=== PATIENT | male | born 1985 | race American Indian/Alaskan Native ===

== ENCOUNTER 2017-09-26 10:40 | Emergency (ER) | payer OTHER ==
[2017-09-26 10:50] VITALS: BP 135/81; PULSE 60; RESP 18; TEMP 98.7; O2SAT 100
--- NOTE | 2017-09-26 11:05 | C.PDOC ---
History Of Present Illness 32 year old male presents to the ED requesting a second opinion for a possible peritonsillar abscess. Patient reports having pain, swelling to the left tonsilar area for the past 2 weeks. Patient reports he was evaluated at [facility]. Patient reports last evaluation was done yesterday for the same symptoms, patient states " they did not tell me what to do, I don't know what is next". Patient denies dental pain, fever, chills, nausea, vomit, diarrhea. Time Seen by Provider: 09/26/17 11:03 Chief Complaint (Nursing): Dental Pain History Per: Patient History/Exam Limitations: no limitations Onset/Duration Of Symptoms: Days Current Symptoms Are (Timing): Still Present Quality: Positive for: "Pain" Recent travel outside of the [place]: No Additional History Per: Patient Past Medical History Reviewed: Historical Data, Nursing Documentation, Vital Signs Vital Signs: Last Vital Signs Temp 98.7 F 09/26/17 10:49 Pulse 60 09/26/17 10:49 Resp 18 09/26/17 10:49 BP 135/81 09/26/17 10:49 Pulse Ox 100 09/26/17 11:05 - Medical History PMH: No Chronic Diseases Surgical History: No Surg Hx Family History: States: Unknown Family Hx - Social History Hx Alcohol Use: No Hx Substance Use: No - Immunization History Hx Tetanus Toxoid Vaccination: No Hx Influenza Vaccination: No Hx Pneumococcal Vaccination: No Review Of Systems Constitutional: Negative for: Fever, Chills ENT: Positive for: Throat Swelling. Negative for: Nose Discharge, Nose Congestion, Throat Pain Respiratory: Negative for: Cough, Shortness of Breath Skin: Negative for: Rash Physical Exam - Physical Exam Appears: Non-toxic, No Acute Distress Skin: Normal Color, Warm, Dry Head: Atraumatic, Normacephalic Eye(s): bilateral: Normal Inspection Nose: No Discharge Oral Mucosa: Moist Throat: No Erythema, No Exudate, No Drooling, Other (left tonsill swelling. no discharge noted) Neck: Normal ROM, Supple Chest: Symmetrical Cardiovascular: Rhythm Regular, No Murmur Respiratory: Normal Breath Sounds, No Rales, No Rhonchi, No Wheezing, Other ( NARD) Extremity: Normal ROM, No Tenderness, No Swelling Neurological/Psych: Oriented x3, Normal Speech, Normal Motor, Normal Sensation Gait: Steady ED Course And Treatment O2 Sat by Pulse Oximetry: 100 (ON RA) Pulse Ox Interpretation: Normal Medical Decision Making Medical Decision Making: D/C paperwork was reviewed and patient had a CT neck done, patient was D/C with prescription for steroid and Augmentin. Patient states " no one explained this to me, I did not realize all this was given". Patient was advised to f/u with ENT as scheduled in 2 days patient agrees with plan and treatment. Disposition - Disposition Referrals: [facility] [Other] [facility] [Outside] [facility] [Outside] Disposition: HOME/ ROUTINE Disposition Time: 11:04 Condition: GOOD Forms: [facility] (B[place]i) - Clinical Impression Clinical Impression: Peritonsillar abscess - Scribe Statement The provider has reviewed the documentation as recorded by the Scribe Eleazar Calzada All medical record entries made by the Scribe were at my direction and personally dictated by me. I have reviewed the chart and agree that the record accurately reflects my personal performance of the history, physical exam, medical decision making, and the department course for this patient. I have also personally directed, reviewed, and agree with the discharge instructions and disposition.
== END 2017-09-26 11:26 | disposition home or self-care (01) ==
LOC: MERGE 10:40 → UNMERGE 10:40 → C.ER 10:40 → EDUNIT# 10:40 → C.ER 11:26
DX: J36 Peritonsillar abscess (principal)